=== PATIENT | female | born 1950 | race African-American/Black ===

== ENCOUNTER → 2016-11-15 | Outpatient (CLI) | payer BC ==
[2016-11-15 10:56] LABS: ABSOLUTE EOSINOPHILS # (AUTO) 0.1 10^3/uL (0.0-0.6); ABSOLUTE LYMPHOCYTES (AUTO) 1.4 10^3/uL (0.5-4.7); ABSOLUTE MONOCYTES (AUTO) 0.4 10^3/uL (0.1-1.4); ABSOLUTE NEUT (AUTO) 3.4 10^3/uL (1.7-8.2); BASOPHILS % (AUTO) 0.6 % (0-2); EOSINOPHILS % (AUTO) 1.8 % (0-6); HEMATOCRIT 39.8 % (36.0-47.0); HEMOGLOBIN 12.9 g/dL (12.0-15.5); HGB HCT DIFFERENCE -1.1; LYMPHOCYTES % (AUTO) 25.8 % (13-45); MEAN CORPUSCULAR HGB CONC 32.5 g/dL (32.0-36.0); MEAN CORPUSCULAR VOLUME 89 fl (80-97); MONOCYTES % (AUTO) 7.4 % (3-13); RED BLOOD COUNT 4.46 10^6/uL (3.72-5.28); RED CELL DISTRIBUTION WIDTH 14.4 % (11.5-14.0); SEGMENTED NEUTROPHILS % (AUTO) 64.4 % (42-78); WHITE BLOOD COUNT 5.3 10^3/uL (4.0-10.5)
[2016-11-15 11:07] LABS: ALANINE AMINOTRANSFERASE 23 U/L (9-52); ALBUMIN 3.9 g/dL (3.5-5.0); ALKALINE PHOSPHATASE 79 U/L (38-126); ANION GAP 9 (5-19); ASPARTATE AMINO TRANSFERASE 20 U/L (14-36); BILIRUBIN,DIRECT 0.3 mg/dL (0.0-0.4); BILIRUBIN,TOTAL 0.6 mg/dL (0.2-1.3); BLOOD UREA NITROGEN 16 mg/dL (7-20); CALCIUM 9.5 mg/dL (8.4-10.2); CARBON DIOXIDE 28 mmol/L (22-30); CHLORIDE 105 mmol/L (98-107); CHOLESTEROL 200.07 mg/dL (0-200); CREATININE RESULT 0.63 mg/dL (0.52-1.25); Direct HDL 67 mg/dL (>40); GLUCOSE 94 mg/dL (75-110); POTASSIUM 4.5 mmol/L (3.6-5.0); TOTAL PROTEIN 7.2 g/dL (6.3-8.2); TRIGLYCERIDES 91 mg/dL (<150)
[2016-11-15 11:17] LABS: DIRECT LDL 103 mg/dL (<100)
== END ==
LOC: OD 09:17
PROVIDERS: ATTEND Internal Medicine
DX: R53.82 Chronic fatigue, unspecified (principal); I10 Essential (primary) hypertension; E78.5 Hyperlipidemia, unspecified
CPT/HCPCS: 36415; 80053; 80061; 83036; 84443; 85025

== ENCOUNTER → 2018-09-23 | Outpatient (CLI) | payer BC, MEDICARE ==
[2018-09-23 12:22] LABS: ABSOLUTE EOSINOPHILS # (AUTO) 0.1 10^3/uL (0.0-0.6); ABSOLUTE LYMPHOCYTES (AUTO) 1.5 10^3/uL (0.5-4.7); ABSOLUTE MONOCYTES (AUTO) 0.4 10^3/uL (0.1-1.4); BASOPHILS % (AUTO) 0.8 % (0-2); EOSINOPHILS % (AUTO) 2.2 % (0-6); HEMATOCRIT 41.5 % (36.0-47.0); HEMOGLOBIN 13.3 g/dL (12.0-15.5); LYMPHOCYTES % (AUTO) 29.5 % (13-45); MEAN CORPUSCULAR HEMOGLOBIN 27.9 pg (27.0-33.4); MEAN CORPUSCULAR VOLUME 87 fl (80-97); MONOCYTES % (AUTO) 7.6 % (3-13); PLATELET COUNT 266 10^3/uL (150-450); RED BLOOD COUNT 4.76 10^6/uL (3.72-5.28); RED CELL DISTRIBUTION WIDTH 14.6 % (11.5-14.0); SEGMENTED NEUTROPHILS % (AUTO) 59.9 % (42-78); TOTAL CELLS COUNTED % (AUTO) 100 %
[2018-09-23 12:44] LABS: ALANINE AMINOTRANSFERASE 32 U/L (9-52); ALBUMIN 4.2 g/dL (3.5-5.0); ALKALINE PHOSPHATASE 79 U/L (38-126); ANION GAP 8 (5-19); ASPARTATE AMINO TRANSFERASE 21 U/L (14-36); BILIRUBIN,DIRECT 0.2 mg/dL (0.0-0.4); BILIRUBIN,TOTAL 0.4 mg/dL (0.2-1.3); BLOOD UREA NITROGEN 14 mg/dL (7-20); CALCIUM 9.9 mg/dL (8.4-10.2); CARBON DIOXIDE 30 mmol/L (22-30); CHLORIDE 103 mmol/L (98-107); CHOLESTEROL 190.92 mg/dL (0-200); GLUCOSE 93 mg/dL (75-110); POTASSIUM 4.4 mmol/L (3.6-5.0); SODIUM 140.6 mmol/L (137-145); TOTAL PROTEIN 7.4 g/dL (6.3-8.2); TRIGLYCERIDES 119 mg/dL (<150)
[2018-09-23 13:06] LABS: DIRECT LDL 96 mg/dL (<100)
== END ==
LOC: OD 10:58
PROVIDERS: ATTEND Internal Medicine
DX: I10 Essential (primary) hypertension (principal); E78.5 Hyperlipidemia, unspecified; R53.83 Other fatigue; E55.9 Vitamin D deficiency, unspecified
CPT/HCPCS: 36415; 80053; 80061; 82306; 83735; 84443; 85025

== ENCOUNTER → 2018-09-28 | Outpatient (CLI) | payer MEDICARE, BC ==
--- NOTE | 2018-09-28 12:16 | WOMENS IMAGING REPORT ---
EXAM DESCRIPTION: BONE DENSITY HIP/SPINE COMPLETED DATE/TIME: 09/28/2018 9:21 am REASON FOR STUDY: Z78.0 ASYMPTOMATIC MENOPAUSAL STATE Z78.0 ASYMPTOMATIC MENOPAUSAL STATE COMPARISON: None. TECHNIQUE: Dual-Energy X-ray Absorptiometry (DEXA) of the AP Spine and Hip. LIMITATIONS: None. FINDINGS: LUMBAR SPINE: The bone mineral density (BMD) measured from L1-L4 in the AP projection correlates with a T-score of 0.6, which is normal as defined by the World Health Organization. HIP: The bone mineral density (BMD) measured in the left hip correlates with a T-score of -0.5 in the femo ral neck, which is normal as defined by the World Health Organization. IMPRESSION: 1. LUMBAR SPINE: Normal 2. HIP: Normal COMMENT: The World Health Organization defines low BMD as follows: T-score: Normal: Greater than -1.0 Osteopenia: Between -1.0 and -2.5 Osteoporosis: Less than -2.5 without fractures Established osteoporosis: Less than -2.5 with fractures In general, you may wish to consider: Diagnosis Treatment Follow-up DEXA Normal BMD Prevention 2-3 years Osteopenia Prevention/Therapy 1-2 years Osteoporosis Therapy Yearly TECHNICAL DOCUMENTATION: JOB ID: [id number] [employer]- All Rights Reserved Reading location - IP/workstation name: [email or web address]
== END ==
LOC: WI 09:02
PROVIDERS: ATTEND Internal Medicine
DX: Z78.0 Asymptomatic menopausal state (principal)
CPT/HCPCS: 77080

== ENCOUNTER → 2019-02-17 | Outpatient (CLI) | payer BC, MEDICARE ==
--- NOTE | 2019-02-17 09:59 | EKG REPORT ---
SEVERITY:- BORDERLINE ECG - SINUS RHYTHM PROBABLE LEFT ATRIAL ABNORMALITY BORDERLINE T ABNORMALITIES, INFERIOR LEADS : Confirmed by: Neha Kee MD 17-Feb-2019 09:58:02
--- NOTE | 2019-02-17 10:36 | RADIOLOGY REPORT (SQ) ---
EXAM DESCRIPTION: CHEST PA/LATERAL COMPLETED DATE/TIME: 02/17/2019 10:27 am REASON FOR STUDY: PRE-OP COMPARISON: 09/19/2011 EXAM PARAMETERS: NUMBER OF VIEWS: two views TECHNIQUE: Digital Frontal and Lateral radiographic views of the chest acquired. RADIATION DOSE: NA LIMITATIONS: none FINDINGS: LUNGS AND PLEURA: No opacities, masses or pneumothorax. No pleural effusion. MEDIASTINUM AND HILAR STRUCTURES: No masses or contour abnormalities. HEART AND VASCULAR STRUCTURES: Heart normal size. No evidence for failure. BONES: No acute findings. HARDWARE: None in the chest. OTHER: No other significant finding. IMPRESSION: NO SIGNIFICANT RADIOGRAPHIC FINDING IN THE CHEST. TECHNICAL DOCUMENTATION: JOB ID: [id number] [employer]- All Rights Reserved Reading location - IP/workstation name: [email or web address]
[2019-02-17 10:44] LABS: ABSOLUTE EOSINOPHILS # (AUTO) 0.1 10^3/uL (0.0-0.6); ABSOLUTE LYMPHOCYTES (AUTO) 1.6 10^3/uL (0.5-4.7); ABSOLUTE MONOCYTES (AUTO) 0.4 10^3/uL (0.1-1.4); ABSOLUTE NEUT (AUTO) 2.8 10^3/uL (1.7-8.2); BASOPHILS % (AUTO) 0.7 % (0-2); EOSINOPHILS % (AUTO) 2.6 % (0-6); HEMATOCRIT 41.6 % (36.0-47.0); HEMOGLOBIN 13.5 g/dL (12.0-15.5); LYMPHOCYTES % (AUTO) 32.6 % (13-45); MEAN CORPUSCULAR HEMOGLOBIN 28.2 pg (27.0-33.4); MEAN CORPUSCULAR HGB CONC 32.4 g/dL (32.0-36.0); MEAN CORPUSCULAR VOLUME 87 fl (80-97); MONOCYTES % (AUTO) 7.4 % (3-13); PLATELET COUNT 226 10^3/uL (150-450); RED BLOOD COUNT 4.77 10^6/uL (3.72-5.28); RED CELL DISTRIBUTION WIDTH 14.3 % (11.5-14.0); SEGMENTED NEUTROPHILS % (AUTO) 56.7 % (42-78); TOTAL CELLS COUNTED % (AUTO) 100 %
[2019-02-17 10:51] LABS: APPEARANCE,URINE CLEAR; BILIRUBIN,URINE NEGATIVE (NEGATIVE); COLOR,URINE YELLOW; GLUCOSE, URINE NEGATIVE (NEGATIVE); KETONES,URINE NEGATIVE (NEGATIVE); LEUKOCYTE ESTERASE,URINE NEGATIVE (NEGATIVE); NITRITE,URINE NEGATIVE (NEGATIVE); PROTEIN,URINE NEGATIVE (NEGATIVE); URINE SPECIFIC GRAVITY 1.015; UROBILINOGEN,URINE NEGATIVE mg/dL (<2.0)
[2019-02-17 11:06] LABS: ANION GAP 7 (5-19); BLOOD UREA NITROGEN 16 mg/dL (7-20); CALCIUM 9.4 mg/dL (8.4-10.2); CARBON DIOXIDE 30 mmol/L (22-30); CHLORIDE 105 mmol/L (98-107); GLUCOSE 94 mg/dL (75-110); POTASSIUM 4.5 mmol/L (3.6-5.0)
== END ==
LOC: OD 09:27
PROVIDERS: ATTEND Orthopaedic Surgery
DX: Z01.810 Encounter for preprocedural cardiovascular examination (principal); Z01.811 Encounter for preprocedural respiratory examination; Z01.812 Encounter for preprocedural laboratory examination; M25.811 Other specified joint disorders, right shoulder; I10 Essential (primary) hypertension
CPT/HCPCS: 36415; 71046; 80048; 81001; 85025; 93005; 93010

== ENCOUNTER 2019-03-16 06:57 | Observation (INO) | payer BC, MEDICARE ==
[~2019-03-16 06:57] MED LIST: BUPIVACAINE INJ/PF LIPOSOME/PF 266 MG/20 ML SDV INJ PRN; CEFAZOLIN INJ 1 GM VIAL IV PRN; CEFAZOLIN INJ 1 GM VIAL ONE; DEXAMETHASONE SOD PHOSPHATE INJ 4 MG/1 ML VIAL ONE; EPHEDRINE SULFATE INJ 50 MG/1 ML AMPULE ONE; FENTANYL CITRATE INJ/PF 100 MCG/2 ML AMPUL ONE; FENTANYL CITRATE INJ/PF 250 MCG/5 ML AMPULE ONE; LACTATED RINGERS 1000 ML IV PRN; MIDAZOLAM 2 MG/2 ML INJ ONE; ONDANSETRON HCL INJ/PF 4 MG/2 ML SDV ONE; OXYCODONE HCL SR 10 MG TABLET PO ONE; OXYCODONE HCL SR 10 MG TABLET PO PRN; PANTOPRAZOLE SODIUM 20 MG TABLET.DR PO ONE; PANTOPRAZOLE SODIUM 20 MG TABLET.DR PO PRN; PROPOFOL INJ 200 MG/20 ML VIAL IV ONE; TRANEXAMIC ACID INJ/PF 1,000 MG/10 ML SDV ONE; VANCOMYCIN HCL 1,000 MG in DEXTROSE 5%-WATER 250 ML IV PRN
[2019-03-16] MEDS ORDERED: BUPIVACAINE HCL 0.5 % INJ/PF 30 ML SDV ONE (08:54)
[2019-03-16] MEDS ORDERED: IBUPROFEN 800 MG in NORMAL SALINE 250 ML IV PRN (09:52)
[2019-03-16] MEDS ORDERED: FENTANYL CITRATE INJ/PF 100 MCG/2 ML AMPUL IV PRN ×3 (10:47)
[2019-03-16] MEDS ORDERED: ONDANSETRON HCL INJ/PF 4 MG/2 ML SDV IV PRN (10:47)
[2019-03-16] MEDS ORDERED: PROMETHAZINE HCL INJ 25 MG/1 ML VIAL IV PRN ×2 (10:47)
[2019-03-16] MEDS ORDERED: MORPHINE SULFATE 10 MG/ML INJ IV PRN ×5 (10:47→12:50)
[2019-03-16] MEDS ORDERED: DIPHENHYDRAMINE HCL 50 MG/ML VIAL IV PRN ×2 (10:47→12:50)
[2019-03-16] MEDS ORDERED: MEPERIDINE HCL/PF INJ 25 MG/1 ML DISP.SYRIN IV PRN (10:47)
[2019-03-16] MEDS ORDERED: BUPIVACAINE INJ/PF LIPOSOME/PF 266 MG/20 ML SDV ONE (12:00)
--- NOTE | 2019-03-16 12:39 | Operative Report ---
Operative Report DATE OF SURGERY: 03/16/19 PREOPERATIVE DIAGNOSIS: Right shoulder rotator cuff arthropathy POSTOPERATIVE DIAGNOSIS: Same OPERATION: Right reverse total shoulder arthroplasty SURGEON: KAMALA PHILLIPS COMPLICATIONS: None ESTIMATED BLOOD LOSS: 125cc PROCEDURE: Indication for above procedure: 68-year-old female with long-standing history of right shoulder rotator cuff arthropathy and degenerative changes. We attempted conservative measures including injections without resolution of patient's symptoms. At that point decision was made to proceed with operative intervention. Risk and benefits were explained patient verbalized understanding consented for surgical procedure. Procedure In Detail: Patient was seen and evaluated in the preoperative holding area. The RIGHT upper extremity was initialized and marked. Patient received 2g of Ancef IV for bacterial prophylaxis. Patient was taken back to the operative room where transferred to the operative table and placed under general anesthesia. Once they were adequately anesthetized patient placed in the beachchair position. Cervical spine was placed in neutral position all bony prominences were padded including nonoperative upper extremity and bilateral lower extremity. A surgical team debriefing was performed ensuring all instrumentation was available, the surgical procedure was discussed with possible concerns reviewed. The upper extremity was prepped with ChloraPrep draped in a sterile fashion. A timeout was done identifying correct patient, procedure and extremity everyone in attendance agree with this and verbalized no concerns. Implants: Arthrex universe reverse modular glenoid baseplate 24 mm Arthrex universe reverse glenosphere 33+4 Arthrex universe reverse size 5 was utilized. 135 degree modular stem 36+ 2 suture cup 36+6 spacer 36+3 combo humeral insert Deltopectoral interval was utilized, cephalic vein identified any small tributaries were coagulated with bipolar cautery. Cephalic vein was retracted laterally. The clavipectoral fascia was incised exposing the glenohumeral joint. Patient had complete disruption of the subscapularis subscapularis was noted along with intra-articular biceps tear. There is no evidence of remnant supraspinatus or infraspinatus along the greater tuberosity. Proximal humerus was then exposed reamer placed and cutting guide inserted between 20 degrees and 40 degrees of retroversion. Proximal humeral cut was made. Any small osteophytes were excised. Wound was copiously irrigated with normal saline attention then turned to glenoid exposure. Anterior labral-capsular tissue was identified and excised. Posterior labral and capsular tissue was excised. Periphery of the glenoid was identified and confirmed. The Arthrex VIP targeting guide was then secured into position and central drill placed. This measured 32 mm. Glenoid reamer was then advanced including the peripheral reamer. Central hole was then drilled and pin removed. The modular glenoid baseplate was then assembled on the back table including the 32 mm central screw. Baseplate was then implanted obtaining good fixation within the glenoid. The superior and inferior screws were drilled and the appropriate size screw placed. 16 mm screw was placed anterior and posterior. Wound was copiously irrigated with normal saline. The size 33+4 glenosphere was then inserted including the locking mechanism. Adequate fixation was confirmed and then attention turned to completing proximal humerus preparation. Proximal humerus was exposed started with a #5 broach up to a modular #5 broach obtaining adequate fixation along the calcar of the humerus. The central portion was then reamed and trialing began. Initial trialing started with a 36+3 insert which did obtain adequate fixation but additional trialing noted a 36+6 spacer and 36+3 combo insert provided optimal fixation. Patient had full passive forward flexion to 160 degrees with abduction to 100 degrees without impingement. Internal rotation demonstrate no impingement along the coracoid. Within the "sit up" position patient had excellent stability. Decision was then made to proceed with implantation. Wound was copiously irrigated with pulse lavage. Final Arthrex universe size 5 modular stem with 36+6 spacer 36+3 combo insert was implanted. Range of motion was once again performed ensuring adequate stability and range of motion. The wound was copiously irrigated with normal saline. Betadine was placed within the wound for 2 minutes. 20 cc +20 cc mixture of Exparel and sterile saline was injected within the soft tissues. Deltopectoral interval was closed with interrupted #1 and 0 Vicryl suture. Subcutaneous tissues were closed with interrupted 3-0 Monocryl suture. Skin was closed with za. Patient was placed in a sling. Sponge counts, instrument counts, needle counts were correct. Patient was then awoken from anesthesia. Transferred from the operating room table to the operating room stretcher. There was no intraoperative complications patient tolerated procedure well stable to PACU. Postop plan: Patient will follow-up the office in 2 weeks for wound check. Will be started on Xarelto while in the hospital and transition to aspirin on discharge home. Patient will begin physical therapy at 6 weeks postoperatively.
[2019-03-16] MEDS ORDERED: ALBUTEROL SULFATE HFA (90 MCG/PUFF) 200 PUFF/8.5 GM MDI IH ONE (12:46)
[2019-03-16] MEDS ORDERED: ONDANSETRON 4 MG TAB.RAPDIS PO PRN (12:50)
[2019-03-16] MEDS ORDERED: OXYCODONE HCL IR 5 MG TABLET PO PRN (12:50)
[2019-03-16] MEDS ORDERED: SUCCINYLCHOLINE CHLORIDE INJ 200 MG/10 ML VIAL ONE (13:09)
--- NOTE | 2019-03-16 13:43 | RADIOLOGY REPORT (SQ) ---
EXAM DESCRIPTION: SHOULDER RIGHT 2 OR MORE VIEWS COMPLETED DATE/TIME: 03/16/2019 1:04 pm REASON FOR STUDY: Post op TSA in PACU M25.811 OTHER SPECIFIED JOINT DISORDERS, RIGHT SHOULDER COMPARISON: None. NUMBER OF VIEWS: Two views. TECHNIQUE: AP internal and external rotation images acquired of the right shoulder. LIMITATIONS: Limited postoperative images. FINDINGS: MINERALIZATION: Decreased. BONES: No acute fracture. No worrisome bone lesions. JOINTS: No definite dislocation although evaluation limited on the frontal projections. VISUALIZED LUNGS AND RIBS: No pneumothorax. No rib fracture. SOFT TISSUES: No radiopaque foreign body. OTHER: Postsurgical changes from the reverse right shoulder arthroplasty with overlying skin za and subcutaneous gas. IMPRESSION: Postsurgical changes from the reverse right shoulder arthroplasty without definite evide nce of complication. Evaluation for dislocation limited on the frontal projections. TECHNICAL DOCUMENTATION: JOB ID: [id number] [employer]- All Rights Reserved Reading location - IP/workstation name: [email or web address]
[2019-03-16] MEDS ORDERED: RIVAROXABAN 10 MG TABLET PO SCH (17:00)
[2019-03-16] MEDS ORDERED: CEFAZOLIN 2 GM/D5W RTU 2 GM/50 ML RTUPB IV SCH (18:00)
[2019-03-16] MEDS ORDERED: PREGABALIN 75 MG CAPSULE PO SCH (18:00)
[2019-03-16] MEDS: CEFAZOLIN SODIUM 2 GM in DEXTROSE 5%-WATER 100 ML IV SCH (18:10)
[2019-03-16] MEDS ORDERED: ACETAMINOPHEN 1,000 MG/100 ML RTUPB IV ONE (18:50)
[2019-03-16] MEDS ORDERED: OXYCODONE HCL SR 10 MG TABLET PO SCH (22:00)
[2019-03-17] MEDS: CEFAZOLIN SODIUM 2 GM in DEXTROSE 5%-WATER 100 ML IV SCH ×2 (00:01→05:39)
[2019-03-17] MEDS ORDERED: PANTOPRAZOLE SODIUM 40 MG TABLET.DR PO SCH (06:00)
--- NOTE | 2019-03-17 06:32 | PDOC DISCHARGE SUMMARY ---
Impression - Admit/DC Date/PCP Admission Date/Primary Care Provider: 03/16/19 12:50 NOHELIA MAURICE MD Discharge Date: 03/17/19 - Additional Information Resuscitation Status: Full Code Discharge Diet: As Tolerated Discharge Activity: No Lifting Over 10 Pounds, No Lifting/Push/Pulling Referrals: [facility] [Provider Group] - 03/29/19 10:50 am Home Medications: Amlodipine Besylate [Norvasc 10 mg Tablet] 10 mg PO BID 03/09/19 Aspirin [Ecotrin 81 mg EC Tablet] 81 mg PO DAILY 03/09/19 Benazepril/Hydrochlorothiazide [Benazepril-Hctz 20-12.5 mg Tab] 1 tab PO BID 03/09/19 Ergocalciferol (Vitamin D2) [Vitamin D2] 50,000 unit PO Q7D 03/09/19 History of Present Illiness History of Present Illness: NHI RICH is a 68 year old female long-standing history of shoulder rotator cuff arthropathy. Patient attempted to remeasure without resolution of p atient's symptoms. At that point decision was made to proceed with operative treatment. Risks and benefits were explained patient verbalized understanding consented for surgical procedure. Hospital Course Hospital Course: 68-year-old female with long-standing history of right shoulder DJD. On 03/17/2019 patient underwent total shoulder arthroplasty, patient tolerated procedure well there was no complications. Postoperatively patient had been doing well. Pain controlled with Percocet. Patient had no issues overnight on postop day 1 and thus on 03/17/2019 orthopedically stable for discharge to home. Physical Exam Vital Signs: Temp Pulse Resp BP Pulse Ox 98.4 F 77 16 119/59 L 100 03/17/19 00:00 03/17/19 00:00 03/17/19 00:00 03/17/19 00:00 03/17/19 00:00 Intake & Output 03/15/19 03/16/19 03/17/19 06:59 06:59 06:59 Intake Total 3092 Balance 3092 General appearance: PRESENT: no acute distress, well-developed, well-nourished Head exam: PRESENT: atraumatic, normocephalic Eye exam: PRESENT: conjunctiva pink, EOMI, PERRLA. ABSENT: scleral icterus Ear exam: PRESENT: normal external ear exam Mouth exam: PRESENT: moist, tongue midline Neck exam: ABSENT: carotid bruit, JVD, lymphadenopathy, thyromegaly Respiratory exam: PRESENT: clear to auscultation shaji. ABSENT: rales, rhonchi, wheezes Cardiovascular exam: PRESENT: RRR. ABSENT: diastolic murmur, rubs, systolic murmur Pulses: PRESENT: normal dorsalis pedis pul Vascular exam: PRESENT: normal capillary refill GI/Abdominal exam: PRESENT: normal bowel sounds, soft. ABSENT: distended, guarding, mass, organolmegaly, rebound, tenderness Rectal exam: PRESENT: deferred Extremities exam: PRESENT: full ROM. ABSENT: calf tenderness, clubbing, pedal edema Musculoskeletal exam: PRESENT: other - Right shoulder: Dressing clean/dry/intact no erythema or drainage. Intact flexion extension of the elbow wrist and hand. Neurological exam: PRESENT: alert, awake, oriented to person, oriented to place, oriented to time, oriented to situation, CN II-XII grossly intact. ABSENT: motor sensory deficit Psychiatric exam: PRESENT: appropriate affect, normal mood. ABSENT: homicidal ideation, suicidal ideation Skin exam: PRESENT: dry, intact, warm. ABSENT: cyanosis, rash Results Impressions: Shoulder X-Ray 03/16/19 00:00 IMPRESSION: Postsurgical changes from the reverse right shoulder arthroplasty without definite evidence of complication. Evaluation for dislocation limited on the frontal projections. Plan Plan of Treatment: Postop day #1 status post right total reverse shoulder arthroplasty. 1. Elbow wrist and hand range of motion. 2. Aspirin for DVT prophylaxis 3. Oxycodone for pain control. 4. Patient has done well postoperatively. On 03/17/2019 orthopedically stable for discharge to home. Patient will follow in the office in 10-14 days for wound check. Patient to call the office with questions or concerns including increasing redness, swelling, pain or temperature greater than 101.5. Patient was reviewed the above instructions understood above instructions. Stroke Is this a Stroke Patient?: No Acute Heart Failure - Is this a Heart Failure Patient?: No
[2019-03-17 08:52] VITALS: BP 124/69
== END 2019-03-17 10:09 | disposition home or self-care (01) ==
LOC: OROUT 06:57 → 5 12:50
PROVIDERS: ADMIT Orthopaedic Surgery; ATTEND Orthopaedic Surgery
PROC: 0RRJ00Z Replacement of Right Shoulder Joint with Reverse Ball and Socket Synthetic Substitute, Open Approach (ICD-10-PCS; principal; 2019-03-16 09:00)
DX: M19.011 Primary osteoarthritis, right shoulder (principal); M75.51 Bursitis of right shoulder; I10 Essential (primary) hypertension; Z79.899 Other long term (current) drug therapy; Z79.82 Long term (current) use of aspirin
CPT/HCPCS: 73030; 94799; 97530; 97116; 97163; 01630; 23472; G0378 ×2; G0379; J2250; J0690 ×2; J1100; J3490 ×5; J3010; J2270; J0330; J2405; J7060 ×3; J7050; J2704; J3370; J0131; C9290; J1741